=== PATIENT | male | born 1975 | race Caucasian/White ===

== ENCOUNTER → 2024-10-23 12:57 | Outpatient (BNVA) | payer OTHER, SELFPAY | PROVIDERS: Visit Provider Physician Assistant Medical | DX: T70.0XXA Otitic barotrauma, initial encounter (principal); S00.432A Contusion of left ear, initial encounter; S00.431A Contusion of right ear, initial encounter; W94.0XXA Exposure to prolonged high air pressure, initial encounter; H93.12 Tinnitus, left ear; R51.9 Headache, unspecified; R53.83 Other fatigue | CPT/HCPCS: 70450; 99203 ==

== ENCOUNTER 2024-10-23 15:09 | Outpatient (REF) | payer OTHER, SELFPAY ==
--- OUTSIDE RECORDS SUMMARY | 2024-10-23 15:13 | XMS_ITS | Referral Summary ---
Author Organization [facility] Address [address] [place] [address] Care Team Providers Care Landscape Gardener Name Role Phone Jud Nur MD Primary Care Provider [phone] Social History Tobacco Use Types Packs/Day Years Used Date Smoking Tobacco: Never Assessed Sex and Gender Information Value Date Recorded Sex Assigned at Male 08/13/2022 3:04 PM EDT Legal Sex Male 8:18 AM EST Gender Identity Male 08/13/2022 3:04 PM EDT Sexual Orientation Straight 08/13/2022 3: 04 PM EDT Plan of Treatment Not on file [place] [address] [address] [place] [id number] HMO/POS Care Teams Landscape Gardener Relationship Specialty Start Date End Date Jud Nur MD [address] [place] [id number] PCP - General 07/31/22
== END 2024-10-23 15:10 | disposition home or self-care (01) ==
LOC: HO.SH 15:09
PROVIDERS: Visit Provider Physician Assistant Medical
DX: Z01.118 Encounter for examination of ears and hearing with other abnormal findings (principal); H90.41 Sensorineural hearing loss, unilateral, right ear, with unrestricted hearing on the contralateral side; H93.13 Tinnitus, bilateral
CPT/HCPCS: 92557; 92567; 92588

== ENCOUNTER → 2024-10-29 13:51 | Outpatient (BNVA) | payer OTHER, SELFPAY | PROVIDERS: Visit Provider Physician Assistant Medical | DX: H93.12 Tinnitus, left ear (principal); T70.0XXA Otitic barotrauma, initial encounter; S00.432A Contusion of left ear, initial encounter; S00.431A Contusion of right ear, initial encounter; W94.0XXA Exposure to prolonged high air pressure, initial encounter | CPT/HCPCS: 99213 ==

== ENCOUNTER → 2024-11-05 10:01 | Outpatient (BNVA) | payer OTHER, SELFPAY | PROVIDERS: Visit Provider Physician Assistant Medical | DX: H93.13 Tinnitus, bilateral (principal); R53.83 Other fatigue; R51.9 Headache, unspecified; H53.71 Glare sensitivity | CPT/HCPCS: 99213 ==

== ENCOUNTER → 2024-11-17 09:45 | Outpatient (BNVA) | payer OTHER, SELFPAY | PROVIDERS: Visit Provider Physician Assistant Medical | DX: T70.0XXD Otitic barotrauma, subsequent encounter (principal); W94 Exposure to high and low air pressure and changes in air pressure; H53.71 Glare sensitivity | CPT/HCPCS: 99213 ==

== ENCOUNTER → 2024-12-08 09:49 | Outpatient (BNVA) | payer OTHER, SELFPAY | PROVIDERS: Visit Provider Physician Assistant Medical | DX: T70.0XXD Otitic barotrauma, subsequent encounter (principal); S00.432D Contusion of left ear, subsequent encounter; S00.431D Contusion of right ear, subsequent encounter; W94 Exposure to high and low air pressure and changes in air pressure; H93.12 Tinnitus, left ear; F07.81 Postconcussional syndrome | CPT/HCPCS: 99213 ==

== ENCOUNTER → 2024-12-29 09:56 | Outpatient (BNVA) | payer OTHER, SELFPAY | PROVIDERS: Visit Provider Physician Assistant Medical | DX: T70.0XXD Otitic barotrauma, subsequent encounter (principal); W94 Exposure to high and low air pressure and changes in air pressure; H93.12 Tinnitus, left ear; F07.81 Postconcussional syndrome | CPT/HCPCS: 99213 ==

== ENCOUNTER → 2025-01-29 09:51 | Outpatient (BNVA) | payer OTHER, SELFPAY | PROVIDERS: Visit Provider Physician Assistant Medical | DX: T70.0XXD Otitic barotrauma, subsequent encounter (principal) | CPT/HCPCS: 99213 ==

== ENCOUNTER → 2025-02-11 09:29 | Outpatient (BNVA) | payer OTHER, SELFPAY | PROVIDERS: Visit Provider Emergency Medicine | DX: T70.0XXD Otitic barotrauma, subsequent encounter (principal); W94 Exposure to high and low air pressure and changes in air pressure; H93.13 Tinnitus, bilateral; Z02.79 Encounter for issue of other medical certificate | CPT/HCPCS: 99214 ==